=== PATIENT | female | born 1950 | race Caucasian/White ===

== ENCOUNTER 2022-07-25 18:47 | Inpatient (IN) | payer MEDICARE ==
[~2022-07-25] VITALS: Ht 170.2 cm; Wt 51.7 kg
[~2022-07-25 18:47] MED LIST: LEVO25TA2 PO
--- NOTE | 2022-07-25 19:15 | NUR ---
Dr Bonner into eval patient.
--- NOTE | 2022-07-25 19:30 | NUR ---
Patient's at bedside
[2022-07-25] MEDS ORDERED: IV NORMAL SALINE 1000 ML BAG IV ONE (20:00)
--- NOTE | 2022-07-25 20:00 | NUR ---
Dr Bonner at bedside MSE in progress
[2022-07-25 20:02] LABS: HEMATOCRIT 41.2 % (31.2-41.9); MEAN CORPUSCULAR HEMOGLOBIN 33.6 uug (24.7-32.8); MEAN CORPUSCULAR VOLUME 100.5 fL (75.5-95.3); PLATELET COUNT (AUTO) 146 K/uL (179-408)
[2022-07-25 20:22] LABS: CARBON DIOXIDE 31 mmol/L (21-32); CHLORIDE 102 mmol/L (98-107); GLUCOSE 91 mg/dL (74-106); POTASSIUM 3.8 mmol/L (3.5-5.1); UREA NITROGEN, BLOOD 28 mg/dL (7-18)
[2022-07-25 20:30] LABS: ALANINE AMINOTRANSFERASE 43 U/L (14-59); ALKALINE PHOSPHATASE 64 U/L (50-136); ASPARTATE AMINOTRANSFERASE 23 U/L (15-37); BILIRUBIN,DIRECT 0.2 mg/dL (0.0-0.2); BILIRUBIN,TOTAL 0.7 mg/dL (0.2-1.0); TOTAL PROTEIN, SERUM 7.1 g/dL (6.4-8.2)
--- NOTE | 2022-07-25 21:34 | NUR ---
Called [facility] for panel call
--- NOTE | 2022-07-25 21:38 | NUR ---
patient has been accepted by Dr Orta
--- NOTE | 2022-07-25 21:40 | NUR ---
called 3rd floor for bed. Spoke with Mary KAMINSKIauto self service station attendant, Will call me back
--- NOTE | 2022-07-25 21:46 | NUR ---
Deniz KAMINSKI charge called back, patient will be transfered to ROOM 304
[2022-07-25] MEDS ORDERED: GABA-532 PO (21:57)
[2022-07-25] MEDS ORDERED: ATOR10TA PO (21:57)
[2022-07-25] MEDS ORDERED: IV NS 1000 ML 1,000 ML IV PRN (22:00)
[2022-07-25] MEDS ORDERED: REMEDY ESSENTIAL ZINC PASTE 113 GM TP PRN (22:00)
[2022-07-25] MEDS ORDERED: ONDANSETRON 4 MG/2 ML VIAL IV PRN (22:00)
[2022-07-25] MEDS ORDERED: MAGNESIUM HYDROXIDE 30 ML LIQUID UDC PO PRN (22:00)
[2022-07-25] MEDS ORDERED: ENOXAPARIN SODIUM 30 MG/0.3 ML DISP.SYRIN SQ SCH (22:00)
--- NOTE | 2022-07-25 22:02 | NUR ---
Called 3rd floor to give report to Viv. Will call me back once she is ready for report
--- NOTE | 2022-07-25 22:16 | NUR ---
report given to Viv KAMINSKI
--- NOTE | 2022-07-25 23:35 | NUR ---
Patient is able to tolerate food and fluids
[2022-07-25 23:40] VITALS: BP 165/83
--- NOTE | 2022-07-26 | NUR ---
Patient transfered to TELE room 304 by [place] KAMINSKI drywall application supervisor.
--- NOTE | 2022-07-26 00:01 | NUR ---
Pt. admitted to TELE room 304 , under care of Dr. Orta Belongs List completed
--- NOTE | 2022-07-26 00:19 | NUR ---
PT PLATELET ARE LOW 146 LOVENOX IS HELD.
[2022-07-26] MEDS: ACETAMINOPHEN 325 MG TABLET PO PRN ×2 (00:28→12:28)
[2022-07-26 04:00] VITALS: BP 136/76
--- NOTE | 2022-07-26 05:58 | NUR ---
SHIFT NOTE; RECEIVED FROM ER 71Y/O FEMALE PT WHO WAS STANDING BY HER REFRIGERATED AT HOME AND FELL AND SUSTAINED A RT SGOULDER CONTUSION WITH SOME PAIN IN THE NECK AND SHOULDER. IMAGING WAS DONE OF SHOULDER, HEAD, NECK,AND ALL WERE NEGATIVE. PT C/O PAIN GAVE TYLENOL 650MG ORDERED RECHECKED PT STATES i FEEL BETTER. DR ALAS ORDERED IVF OF NSINFUSING AT 75ML AND HOUR. ALSO ORDERED LOVENOX AN ANTICOAGLATE BUT PLATELETS LOW HELD MEDICATION. PT MONITORED HOURLY THROUGHTOUT THE SHIFT FOR REQUEST MONITORED PT EVERY HOUR ORDEDL WILL ENDORSE TO AM NURSE.
[2022-07-26] MEDS ORDERED: LEVOTHYROXINE SODIUM 25 MCG TABLET PO SCH (07:00)
[2022-07-26 07:25] LABS: HEMATOCRIT 39.6 % (31.2-41.9); MEAN CORPUSCULAR HEMOGLOBIN 34.1 uug (24.7-32.8); MEAN CORPUSCULAR VOLUME 99.6 fL (75.5-95.3); PLATELET COUNT (AUTO) 126 K/uL (179-408)
--- NOTE | 2022-07-26 07:30 | NUR ---
RECEIVED PATIENT IN BED AWAKE ALERT AND ORIENTED DENIES PAIN OR DISCOMFORTS AT THIS TIME.REMAIN ON IVF WITH NO S/S OF INFILTERATION AT THIS TIME TELE IS SR CALL LIGHTS AND PERSONAL BELONGINGS ARE WITHIN EASY REACH WILL CONTINUE TO OBSERVE.
[2022-07-26 07:38] LABS: CARBON DIOXIDE 27 mmol/L (21-32); CHLORIDE 105 mmol/L (98-107); CREATININE 0.9 mg/dL (0.6-1.3); GLUCOSE 95 mg/dL (74-106); MAGNESIUM 1.7 mg/dL (1.8-2.4); PHOSPHOROUS 3.6 mg/dL (2.5-4.9); POTASSIUM 3.7 mmol/L (3.5-5.1); UREA NITROGEN, BLOOD 20 mg/dL (7-18)
[2022-07-26 07:53] LABS: THYROID STIMULATING HORMONE 3.634 mIU/mL (0.358-3.740)
--- NOTE | 2022-07-26 09:00 | NUR ---
PATIENT SEEN AND EXAMINED BY DR POE WITH NO NEW ORDERS AT THIS TIME
--- NOTE | 2022-07-26 09:38 | NUR ---
IV SITE LEFT AC INFILTERATED AND A NEW LINE STARTED TO HER LEFT FOREARM WITH GAUGE 20 WITH ONE ATTEMPT AND IVF IN PROGRESS ORDERED.
--- NOTE | 2022-07-26 12:29 | NUR ---
PATIENT C/O HEADACHE MEDICATED WITH TYLENOL ORDERED 2D ECHO COMPLETED AND PER THE TECHNOLOGY STRATEGIST THE BUBBLE TEST IS IN PROGRESS ORDERED AT THIS TIME.
--- NOTE | 2022-07-26 15:45 | NUR ---
PATIENT EXPRESSED DESIRE TO BE DISCHARGED HOME TODAY REFUSED WANTS HER IVF TO BE DISCONTINUED AT THIS TIME CALLED DR RAI SANTILLAN AND LEFT HER A MESSAGE.AWAITING FOR RETURN CALL
[2022-07-26 15:49] VITALS: BP 153/82
--- NOTE | 2022-07-26 16:00 | NUR ---
DR RAI SANTILLAN RETURNED CALL AND STATED THAT SHE WILL CALL DR POE FIRST RE THE BUBBLE TEST BEFORE PATIENT CAN BE DISCHARGED.
--- NOTE | 2022-07-26 16:10 | NUR ---
ORDER TO DISCHARGE PATIENT HOME RECEIVED AND NOTED PATIENT AWARE AND STATED THAT HER DAT WILL BE ABLE TO PICK HER UP THIS EVENING WILL PREP HER FOR DISCHARGE.
--- NOTE | 2022-07-26 17:50 | NUR ---
PATIENT DISCHARGED PICKED UP BY HER DAT IN SATISFACTORY CONDITION WITH DISCHARGE INSTRUCTIONS.PATIENT STATED HAS AN APPOINTMENT WITH DR POE THE [facility] TOMORROW AND WAS REMINDED TO NOT DRIVE UNTIL SHE SEE THE DOCTOR AND IS CLEARED TO DRIVE AND SHE EXPRESSED UNDERSTANDING.
== END 2022-07-26 17:50 | disposition home or self-care (01) | DRG 640 ==
LOC: ER 18:50 → TELE3 22:46
PROVIDERS: ADMIT Internal Medicine; ATTEND Nurse Practitioner Acute Care
DX: E86.0 Dehydration (principal); N17.0 Acute kidney failure with tubular necrosis; I50.22 Chronic systolic (congestive) heart failure; R55 Syncope and collapse; E03.9 Hypothyroidism, unspecified; E78.5 Hyperlipidemia, unspecified; Z86.79 Personal history of other diseases of the circulatory system; I25.10 Atherosclerotic heart disease of native coronary artery without angina pectoris; I44.7 Left bundle-branch block, unspecified; S40.011A Contusion of right shoulder, initial encounter; W19.XXXA Unspecified fall, initial encounter; Y93.9 Activity, unspecified; Y92.009 Unspecified place in unspecified non-institutional (private) residence as the place of occurrence of the external cause; M19.90 Unspecified osteoarthritis, unspecified site; Z20.822 Contact with and (suspected) exposure to COVID-19
CPT/HCPCS: 36415; 70450; 71045; 72125; 73030; 83735; 84100; 84443; 84484; 85025; 93005; 93307; A4663; G0378; J7040